=== PATIENT | female | born 1985 ===

== ENCOUNTER 2024-01-12 14:50 | Emergency (ER) | payer OTHER ==
[2024-01-12] MEDS ORDERED: ONDANSETRON 4 MG/2 ML VIAL ONE (16:13)
[2024-01-12] MEDS ORDERED: HYDROmorphone 1 MG/ML 1 ML SYRINGE ONE ×2 (16:13→17:09)
[2024-01-12] MEDS ORDERED: SODIUM CHLORIDE 0.9% 1,000 ML BAG ONE (16:15)
[2024-01-12] MEDS ORDERED: diphenhydrAMINE 50 MG/ML 1 ML VIAL ONE (17:09)
--- NOTE | 2024-02-03 12:53 | CT ---
EXAM: CT abdomen pelvis with IV contrast. INDICATION: Patient age: YONATAN ARIAS : 1985 Reason for study: Ovarian cyst, pain in left side abdomen COMPARISON: None, please note PACS downtime occurred during the radiologist interpretation of these i mages with limited priors/reports.. TECHNIQUE: CT abdomen and pelvis, with axial imaging and sagittal and coronal reformats following the administra tion of 100 cc of Omnipaque 350 IV contrast material.. One or more CT dose reduction strategies were utilized during this examination. Total DLP administered was 2036.4 mGycm. FINDINGS: LOWER CHEST: Unremarkable ABDOMEN LIVER: Unremarkable GALLBLADDER AND BILE DUCTS: The gallbladder is surgically absent. PANCREAS: Unremarkable. SPLEEN: Unremarkable. ADRENAL GLANDS: Unremarkable. KIDNEYS AND URETERS: No evidence of hydronephrosis or renal calculus. The ureters are unremarkable. PELVIS BLADDER: Unremarkable REPRODUCTIVE: Left ovarian cyst thought to be present measuring up to 29 mm. ABDOMEN & PELVIS STOMACH AND BOWEL: Stomach and duodenum are unremarkable. No evidence of bowel obstruction. The appe ndix is normal. PERITONEUM: No evidence of pneumoperitoneum or free fluid. VASCULATURE: No evidence of aortic aneurysm. MUSCULOSKELETAL: No acute osseous abnormalities, grade 1 anterolisthesis of L4 and L5. LYMPH NODES: No gross evidence for lymphadenopathy. SOFT TISSUE/ABDOMINAL WALL: Fat-containing umbilical hernia. IMPRESSION: 1. No acute abdominal process to explain the patient's pain. 2. Left ovarian probable cyst measuring up to 29 mm. Evaluation limited without IV contrast. 3. No obstructive uropathy or renal calculus. 4. The appendix is normal.
--- NOTE | 2024-02-08 14:33 | US ---
Site ID [facility] Patient Rubi Clement ID US 1985 Age/Gender: 38Y, F Order # N/A Procedure US PELVIS COMPLETE TRANSVAG Date 01/12/2024 4:41:00 PM EXAMINATION TYPE: US pelvic complete DATE OF EXAM: 01/28/2024 COMPARISON: NONE CLINICAL INDICATION: Female, 38 year old with history of left sided pelvic pain; ablation August 2023, 2 . TECHNIQUE: Transvaginal (TV) and Transabdominal (TA) . Transabdominal sonographic images of the pel vis were acquired. Transvaginal sonographic images were medically necessary to better assess the fol lowing anatomy: Uterus. Delayed interpretation due to institutional cyber attack. EXAM MEASUREMENTS: Uterus: 8.7 x 4.8 x 5.4 cm Endometrial Stripe: 0.3 cm Right Ovary: Nonvisualized Left Ovary: 3.5 x 3.1 cm 1. Uterus: Anteverted wnl 2. Endometrium: wnl 3. Right Ovary: Obscured by overlying bowel gas 4. Left Ovary: Good flow within the left ovary. Dominant follicular cyst measuring 2.3 cm within the left ovary. 5. Bilateral Adnexa: wnl 6. Posterior cul-de-sac: wnl IMPRESSION: 1. No ultrasound evidence for abnormality. 2. Nonvisualization of the right ovary due to overlying bowel gas.
== END 2024-01-13 14:57 | disposition home or self-care (01) ==
LOC: EC 14:50
CPT/HCPCS: 74176; 76830; 76856; 80053; 81003; 83735; 84100; 85027; 85610; 85730; 96374; 96375; 96376; 99284